=== PATIENT | male | born 1960 | race Two or more races ===

== ENCOUNTER 2017-06-21 19:03 | Emergency (ER) | payer OTHER, MEDICAID ==
[~2017-06-21] VITALS: Ht 170.2 cm; Wt 76.2 kg
[2017-06-21 19:57] VITALS: BP 123/76
== END 2017-06-21 23:00 | disposition left against medical advice (07) ==
LOC: ER 19:03
DX: R05 Cough (principal); R51 Headache; Z53.21 Procedure and treatment not carried out due to patient leaving prior to being seen by health care provider

== ENCOUNTER → 2020-09-30 | Outpatient (CLI) | payer MEDICARE, MEDICAID ==
[~2020-09-30] VITALS: Ht 175.3 cm; Wt 75.3 kg
[~2020-09-30] MED LIST: ADENOSINE 63 MG in GIVE UN-DILUTED 0 ML IV ONE; ADENOSINE 90 MG/30 ML INJ IV ONE
== END | disposition home or self-care (01) ==
LOC: Rad HDHVI 08:18
PROVIDERS: ATTEND Internal Medicine Cardiovascular Disease
DX: Z01.810 Encounter for preprocedural cardiovascular examination (principal); I12.9 Hypertensive chronic kidney disease with stage 1 through stage 4 chronic kidney disease, or unspecified chronic kidney disease; E11.22 Type 2 diabetes mellitus with diabetic chronic kidney disease; N18.4 Chronic kidney disease, stage 4 (severe); E78.5 Hyperlipidemia, unspecified
CPT/HCPCS: 78452; 93005; 96374; 96375; A9500; J0153